=== PATIENT | female | born 1995 | race Caucasian/White ===

== ENCOUNTER 2017-01-19 14:44 | Emergency (ER) | payer OTHER ==
--- NOTE | 2017-01-19 15:43 | ED ORDER SUMMARY ---
..... Patient: LAURA MCGHEE OrderSheet [facility] VisitID: [id number] [address] [place] [address] 21y, F Registration Date/Time: 01/19/2017 ORDER SHEET Weight: 72.1 kg (stated) Allergies: Latex, Penicillins GENERAL ORDERS: MEDICATION ORDERS: Xanax PO 0.5 mg (NOW) (15:35 01/19/2017 Shi A.R.N.P.) (15:40 Silvio Rivas.N.) IV FLUIDS: ORDER SHEET NOTES: [Electronically signed by Clarisse Murray.R.N.P. (18:45 01/19/2017)] [Electronically signed by David Rice R.N. (19:00 01/19/2017)] [Electronically locked/signed by David Rice R.N. (19:00 01/19/2017)]
--- NOTE | 2017-01-19 15:43 | ED CLINICAL REPORT ---
Clinical Report - Physicians/Mid Levels [facility] [address] [place] [address] 01/19/2017 14:48 Patient: LAURA MCGHEE Time Seen: 1455; initial patient contact, initial documentation, patient care assumed. Arrived- By private vehicle. Not in custody. Historian- patient and mother. HISTORY OF PRESENT ILLNESS Chief Complaint: DEPRESSED and SUICIDAL THOUGHTS. This started about 2 - 3 weeks ago. No situational problems or recent drug use or alcohol consumption. She has not exhibited a behavior change, was not found wandering and is compliant with medication. Has had suicidal thoughts but been eating or not been depressed. Has not been sleeping. She has had anxiety. No anger, unusual behavior, paranoia, delusions or self-injury inflicted. No hallucinations. The symptoms are described as moderate. No injury is present. pt stating she has random thoughts of si or hurting herself when being left alone, she never acts on them, and she gets upset with herself when she has the thoughts, pt gave examples: driving alone and thought of driving over middle line to hit another car or drive into something, doing dishes and had thoughts of which knife was the sharpest, won't shave anymore because one time in shower she had thoughts of what the razor would do. Similar symptoms previously: None. Recent medical care: The patient was seen recently by a health care provider. ( went to pcp this am, provider not comfortable rx-ing psych meds or sleeping meds, so sent pt to [facility] for psych eval, [facility] then sent pt here after eval, since mom would not sign safety contract, for another psych eval, f/u appt tomorrow with [facility]). REVIEW OF SYSTEMS No headache, dizziness, weakness, chest pain or vomiting. No diarrhea, numbness or difficulty breathing. All systems otherwise negative, except as recorded above. PAST HISTORY See nurses notes. ( PROBLEMS: Sprain. Sinusitis. Eustachian Tube Dysfunction. URI. Viral Disease. Influenza. Tetanus Status. Spontaneous (Miscarriage). Vaginal Bleeding. Abdominal Pain. Threatened . Care. Pharyngitis. Strep Throat. Bronchitis. Laryngitis. . Ingrown Toenail. UTI - Urinary Tract Infection. --14:53 David Rice R.N. Bipolar Disorder. --15:07 David Rice R.N. ADDITIONAL SURGERIES: Dental Surgery. Tonsillectomy. --14:53 David Rice R.N.). SOCIAL HISTORY Light tobacco smoker. Has social support. Has place to stay. FAMILY HISTORY Negative. ADDITIONAL NOTES The nursing notes have been reviewed with agreement regarding the chief complaint, HPI, ROS, PMH and patient medications and allergies. PHYSICAL EXAM Vital Signs: 01/19/2017 14:52 BP: 125/78. HR: 88. RR: 18. O2 saturation: 100%. Temp: 98.4 F. Have been reviewed as normal and appear to be correct. Appearance: Alert. No acute distress. Appearance is normal. Eyes: Pupils equal, round and reactive to light. Neck: Normal inspection. Neck supple. CVS: Normal heart rate and rhythm. Heart sounds normal. Respiratory: Breath sounds normal. Chest nontender. Abdomen: Soft and nontender. Back: No tenderness. Skin: Skin warm and dry. Normal skin color. Normal skin turgor. Extremities: Extremities exhibit normal ROM. No lower extremity edema. Psych / Neuro: Oriented X 3. Mood and affect normal. Speech normal. Cognition normal. Thought process and content normal. Insight and judgement normal. Cranial nerves normal (as tested). No cerebellar findings. No motor deficit. No sensory deficit. PROGRESS AND PROCEDURES Course of Care: had discussion with mom and pt at time of arrival about tx options, what we could offer here, pt does have place to go and stay, #7 people in house, pt will never be left alone, mom and rest of family already put up all the knives and other sharp stuff, and safety protected the house 1518. spoke to jose a Olson at [facility], to verify what they could offer pt, pt would be offered same thing that was already done, come and talk to pt and set her up with outside sources, since pt is now with [facility] and has appt tomorrow again with them, there is nothing else [facility] will do 1525. pt and mom aware of conversation with jose a at [facility], offered pt something for anxiety/sleep for here and rx, and verified again she has safe place to go, pt agreed with this plan. Patient and mother counseled in person regarding the patient's stable condition and diagnosis. Differential Diagnosis: Other possible considerations: si, homicidal, anxiety, insomnia, bipolar. Above considerations are based on history and physical exam. Differential diagnosis was discussed with patient and patient's mother. Disposition: Discharged home in good and improved condition (15:43). Condition: good and stable. CLINICAL IMPRESSION Anxiety reaction. Psychophysiologic insomnia. INSTRUCTIONS Warnings: GENERAL WARNINGS: Return or contact your physician immediately if your condition worsens or changes unexpectedly, if not improving as expected, or if other problems arise. Specifically return if problem worsens. Prescription Medications: Xanax 0.25 mg: Take 1 orally every 8 hours as needed for anxiety. Dispense fifteen (15). No refills. Substitution is permissible. Follow-up: Follow up with your doctor tomorrow as scheduled even if well. Summary of care provided to patient and family. Understanding of the discharge instructions verbalized by patient and family. (Electronically signed by Clarisse Murray A.R.N.P. 01/19/2017 18:45)
--- NOTE | 2017-01-19 15:43 | ED CLINICAL REPORT ---
Clinical Report - Physicians/Mid Levels [facility] [address] [place] [address] 01/19/2017 14:48 Patient: LAURA MCGHEE Time Seen: 1455; initial patient contact, initial documentation, patient care assumed. Arrived- By private vehicle. Not in custody. Historian- patient and mother. HISTORY OF PRESENT ILLNESS Chief Complaint: DEPRESSED and SUICIDAL THOUGHTS. This started about 2 - 3 weeks ago. No situational problems or recent drug use or alcohol consumption. She has not exhibited a behavior change, was not found wandering and is compliant with medication. Has had suicidal thoughts but been eating or not been depressed. Has not been sleeping. She has had anxiety. No anger, unusual behavior, paranoia, delusions or self-injury inflicted. No hallucinations. The symptoms are described as moderate. No injury is present. pt stating she has random thoughts of si or hurting herself when being left alone, she never acts on them, and she gets upset with herself when she has the thoughts, pt gave examples: driving alone and thought of driving over middle line to hit another car or drive into something, doing dishes and had thoughts of which knife was the sharpest, won't shave anymore because one time in shower she had thoughts of what the razor would do. Similar symptoms previously: None. Recent medical care: The patient was seen recently by a health care provider. ( went to pcp this am, provider not comfortable rx-ing psych meds or sleeping meds, so sent pt to [facility] for psych eval, [facility] then sent pt here after eval, since mom would not sign safety contract, for another psych eval, f/u appt tomorrow with [facility]). REVIEW OF SYSTEMS No headache, dizziness, weakness, chest pain or vomiting. No diarrhea, numbness or difficulty breathing. All systems otherwise negative, except as recorded above. PAST HISTORY See nurses notes. ( PROBLEMS: Sprain. Sinusitis. Eustachian Tube Dysfunction. URI. Viral Disease. Influenza. Tetanus Status. Spontaneous (Miscarriage). Vaginal Bleeding. Abdominal Pain. Threatened . Care. Pharyngitis. Strep Throat. Bronchitis. Laryngitis. . Ingrown Toenail. UTI - Urinary Tract Infection. --14:53 David Rice R.N. Bipolar Disorder. --15:07 David Rice R.N. ADDITIONAL SURGERIES: Dental Surgery. Tonsillectomy. --14:53 David Rice R.N.). SOCIAL HISTORY Light tobacco smoker. Has social support. Has place to stay. FAMILY HISTORY Negative. ADDITIONAL NOTES The nursing notes have been reviewed with agreement regarding the chief complaint, HPI, ROS, PMH and patient medications and allergies. PHYSICAL EXAM Vital Signs: 01/19/2017 14:52 BP: 125/78. HR: 88. RR: 18. O2 saturation: 100%. Temp: 98.4 F. Have been reviewed as normal and appear to be correct. Appearance: Alert. No acute distress. Appearance is normal. Eyes: Pupils equal, round and reactive to light. Neck: Normal inspection. Neck supple. CVS: Normal heart rate and rhythm. Heart sounds normal. Respiratory: Breath sounds normal. Chest nontender. Abdomen: Soft and nontender. Back: No tenderness. Skin: Skin warm and dry. Normal skin color. Normal skin turgor. Extremities: Extremities exhibit normal ROM. No lower extremity edema. Psych / Neuro: Oriented X 3. Mood and affect normal. Speech normal. Cognition normal. Thought process and content normal. Insight and judgement normal. Cranial nerves normal (as tested). No cerebellar findings. No motor deficit. No sensory deficit. PROGRESS AND PROCEDURES Course of Care: had discussion with mom and pt at time of arrival about tx options, what we could offer here, pt does have place to go and stay, #7 people in house, pt will never be left alone, mom and rest of family already put up all the knives and other sharp stuff, and safety protected the house 1518. spoke to jose a Olson at [place], to verify what they could offer pt, pt would be offered same thing that was already done, come and talk to pt and set her up with outside sources, since pt is now with [facility] and has appt tomorrow again with them, there is nothing else [facility] will do 1525. pt and mom aware of conversation with jose a at [place], offered pt something for anxiety/sleep for here and rx, and verified again she has safe place to go, pt agreed with this plan. Patient and mother counseled in person regarding the patient's stable condition and diagnosis. Differential Diagnosis: Other possible considerations: si, homicidal, anxiety, insomnia, bipolar. Above considerations are based on history and physical exam. Differential diagnosis was discussed with patient and patient's mother. Disposition: Discharged home in good and improved condition (15:43). Condition: good and stable. CLINICAL IMPRESSION Anxiety reaction. Psychophysiologic insomnia. INSTRUCTIONS Warnings: GENERAL WARNINGS: Return or contact your physician immediately if your condition worsens or changes unexpectedly, if not improving as expected, or if other problems arise. Specifically return if problem worsens. Prescription Medications: Xanax 0.25 mg: Take 1 orally every 8 hours as needed for anxiety. Dispense fifteen (15). No refills. Substitution is permissible. Follow-up: Follow up with your doctor tomorrow as scheduled even if well. Summary of care provided to patient and family. Understanding of the discharge instructions verbalized by patient and family. (Electronically signed by Clarisse Murray A.R.N.P. 01/19/2017 18:45)
--- NOTE | 2017-01-19 15:43 | ED ORDER SUMMARY ---
..... Patient: LAURA MCGHEE OrderSheet [facility] VisitID: [id number] [address] [place] [address] 21y, F Registration Date/Time: 01/19/2017 ORDER SHEET Weight: 72.1 kg (stated) Allergies: Latex, Penicillins GENERAL ORDERS: MEDICATION ORDERS: Xanax PO 0.5 mg (NOW) (15:35 01/19/2017 Shi A.R.N.P.) (15:40 Silvio Rivas.N.) IV FLUIDS: ORDER SHEET NOTES: [Electronically signed by Clarisse Murray.R.N.P. (18:45 01/19/2017)] [Electronically signed by David Rice R.N. (19:00 01/19/2017)] [Electronically locked/signed by David Rice R.N. (19:00 01/19/2017)]
--- NOTE | 2017-01-19 15:43 | ED NURSING NOTES ---
Clinical Report - Nurses [facility] [address] [place] [address] 01/19/2017 14:48 Patient: LAURA MCGHEE TRIAGE Triage time 14:52 Jan 19 2017. Acuity: LEVEL 3. Chief Complaint: DEPRESSION, SUICIDAL THOUGHTS and ANXIETY. SEBASTIEN COMA SCORE: Sebastien Coma Scale: 15- eyes open spontaneously (4); best verbal response- oriented x 4 (5); best motor response- obeys commands (6). --15:15 David Rice R.N. 14:52 01/19/17. BP: 125/78. HR: 88. RR: 18. O2 saturation: 100%. Temp: 98.4 F. Pain level now 0/10. --15:15 David Rice R.N. Weight: 72.1 kg stated. Height/Length: 69 inches Per Patient. BMI: 23.5. --15:11 David Rice R.N. Medications Hyoscyamine Sulfate Oral. --15:06 David Rice R.N. Allergies Latex. Definite Moderate(rash) Penicillins. Definite Moderate(itching, rash) --14:53 David Rice R.N. History Arrived by private vehicle. Historian: patient. Accompanied by family. ( Two weeks feeling unstable.). She has had anxiety and sleeping difficulties and describes feelings of depression. Has not been confused. Has not been feeling agitated. Denies having hallucinations. PAST MEDICAL HX: Anxiety. Psychiatric illness. No history of diabetes mellitus or hypertension. Immunizations: up-to-date. SOCIAL HX: Current every day light tobacco smoker (cigarette)- less than 1/2 a pack per day. History of drug use: marijuana. No alcohol use. SELF HARM ASSESSMENT: A self harm assessment was performed. The patient answered "yes" to the question "Have you recently felt down, depressed, or hopeless?", "Have you noticed less interest or pleasure in doing things?", "Do you have thoughts of harming or killing yourself?", "Have you ever tried to hurt yourself before today?" and "Do you have any dangerous items in your possession?" and "no" to the question "Are you here because you tried to hurt yourself?" and "Have you recently had thoughts about harming or killing others?". The EMS reported the patient's behavior included suicidal comments and as anxious and withdrawn. In the ED the patient has made suicidal comments. She has been placed under 1-on-1 and continuous supervision with family at bedside. She was placed in direct sight of the nurses station. The ED physician has been notified. FALL RISK ASSESSMENT: Fall risk assessment completed. No fall risk identified. NUTRITIONAL RISK ASSESSMENT: The nutritional risk assessment revealed no deficiencies. FUNCTIONAL ASSESSMENT: Functional assessment: no impairments noted. LEARNING NEEDS ASSESSMENT: The learning needs assessment revealed no barriers. ABUSE ASSESSMENT: Abuse assessment: (yes) The patient was asked "Do you feel safe in your home?". SKIN INTEGRITY ASSESSMENT: Skin integrity risk assessment completed. No skin integrity risk identified. SUICIDE RISK ASSESSMENT (SAD PERSONS score): SADPERSONS Score: 3. The patient is less than 19 or greater than 45 years old, reports history of depression and displays loss of rational thinking. --15:15 David Rice R.N. PROBLEMS: Sprain. Sinusitis. Eustachian Tube Dysfunction. URI. Viral Disease. Influenza. Tetanus Status. Spontaneous (Miscarriage). Vaginal Bleeding. Abdominal Pain. Threatened . Care. Pharyngitis. Strep Throat. Bronchitis. Laryngitis. . Ingrown Toenail. UTI - Urinary Tract Infection. --14:53 David Rice R.N. Bipolar Disorder. --15:07 David Rice R.N. ADDITIONAL SURGERIES: Dental Surgery. Tonsillectomy. --14:53 David Rice R.N. Interventions ID band on patient. --15:15 David Rice R.N. PHYSICAL ASSESSMENT Ambulatory to room. GENERAL / NEURO / PSYCH: Alert. Oriented X 4. Appears anxious. Speech within normal limits. Patient's mood/affect appears tearful. Poor eye contact. Affect appears normal. Patient appears calm and cooperative. The patient describes suicidal thoughts. Patient appears well-nourished and neat and clean. RESPIRATORY: Respirations not labored. Breath sounds within normal limits. CVS: Normal heart rate and rhythm. Capillary refill less than 2 seconds. GI / : Abdomen soft and nontender. Bowel sounds within normal limits. SKIN: Skin intact. Skin is warm and dry. Skin color is within normal limits. --15:35 David Rice R.N. NURSING PROGRESS NOTES Patient gowned. Reassurance given. Suicide precautions initiated. Call light placed in reach. Side rails up x 1. Bed placed in lowest position. Brakes of bed on. ( Mom at bedside). --15:35 David Rice R.N. 15:40 01/19/2017 Xanax (ALPRAZolam) PO Tablets 0.5 mg given. Allergies verified and confirmed 5 rights. --15:40 David Rice R.N. DISPOSITION / DISCHARGE Condition at departure: improved. No learning barriers present. Discharge instructions provided and reviewed with the patient. Reviewed warnings. Reviewed medication(s). Treatments reviewed. Reviewed referrals. Patient verbalized understanding. Written instructions provided in Upper Sorbian. The patient was discharged home and accompanied by parent. She left the Emergency Department ambulatory and via private vehicle. Parent driving. ( Patient agreed to be safe and mother has agreed until patient can have her revisit at [facility] she will keep her one to one.). --16:09 David Rice R.N. 14:52 01/19/17. BP: 125/78. HR: 88. RR: 18. O2 saturation: 100%. Temp: 98.4 F. Pain level now 0/10. --16:09 David Rice R.N. Departure time: 16:Jan 19 2017. --16:09 David Rice R.N. Locked/Released at 01/19/2017 19:00 by David Rice R.N.
--- NOTE | 2017-01-19 19:00 | ED MED RECONCILIATION SUMMARY ---
Patient: LAURA MCGHEE Medication Reconciliation Report [facility] VisitID: [id number] [address] [place] [address] 21y, F Registration Date/Time: 01/19/2017 Weight: 72.1 kg Height/Length: 69 in. BMI: 23.5 ALLERGIES: Latex, Penicillins The patient's Home Medications are listed below: THE FOLLOWING MEDICATIONS NEED TO BE RECONCILED: Hyoscyamine Sulfate Oral The source(s) of the original Home Medication information: Not obtained. The following Medications were given to the patient in the Emergency Department: Xanax [PO] PO 0.5 mg, administered: 01/19/2017 3:40:00 PM The following Medications were prescribed to the patient: Xanax 0.25 mg: Take 1 orally every 8 hours as needed for anxiety. Dispense fifteen (15). No refills. Substitution is permissible. -- Clarisse Murray A.R.N.P.
--- NOTE | 2017-01-19 19:00 | ED DISCHARGE INSTRUCTIONS ---
Patient: LAURA MCGHEE General Instructions [facility] VisitID: [id number] [place] [address] 21y, F Registration Date/Time: 01/19/2017 Anxiety reaction. Psychophysiologic insomnia. INSTRUCTIONS Warnings: GENERAL WARNINGS: Return or contact your physician immediately if your condition worsens or changes unexpectedly, if not improving as expected, or if other problems arise. Specifically return if problem worsens. Prescription Medications: Xanax 0.25 mg: Take 1 orally every 8 hours as needed for anxiety. Dispense fifteen (15). No refills. Substitution is permissible. Follow-up: Follow up with your doctor tomorrow as scheduled even if well. Summary of care provided to patient and family. Understanding of the discharge instructions verbalized by patient and family. ADDITIONAL INFORMATION Stress Reaction Anxiety is the feeling we all get when we think something bad might happen. It is a normal response to stress and usually causes only a mild reaction. When anxiety becomes more severe, emotions may interfere with daily life. In some cases, you may not even be aware of what it is youre anxious about! During an anxiety reaction, you may feel like you are helpless, nervous, depressed or irritable. Your body may show signs of anxiety in many ways. You may experience dry mouth, shakiness, dizziness, weakness, trouble breathing, chest pressure, headache, nausea, diarrhea, tiredness, inability to sleep or sexual problems. Home Care: 1) Try to locate the sources of stress in your life. They may not be obvious! These may include: -- Daily hassles of life which pile up (traffic jams, missed appointments, car troubles, etc.) -- Major life changes, both good (new baby, job promotion) and bad (loss of job, loss of loved one) -- Overload: feeling that you have too many responsibilities and can't take care of all of them at once -- Feeling helpless, feeling that your problems are beyond what youre able to solve 2) Notice how your body reacts to stress. Learn to listen to your body signals. This will help you take action before the stress becomes severe. 3) When you can, do something about the source of your stress. (Avoid hassles, limit the amount of change that happens in your life at one time and take a break when you feel overloaded). 4) Unfortunately, many stressful situations cannot be avoided. It is necessary to learn HOW TO MANAGE STRESS better. There are many proven methods that will reduce your anxiety. These include simple things like exercise, good nutrition and adequate rest. Also, there are certain techniques that are helpful: relaxation and breathing exercises, visualization, biofeedback and meditation. For more information about this, consult your doctor or go to a local bookstore and review the many books and tapes available on this subject. Follow Up If you feel that your anxiety is not responding to self-help measures, contact your doctor or make an appointment with a counselor. Get Prompt Medical Attention if any of the following occur: -- Your symptoms get worse -- Chest pain or trouble breathing -- Severe headache not relieved by rest and mild pain reliever -- Rapid or irregular heartbeat, fainting Insomnia Insomnia refers to a difficulty going to sleep or staying asleep, or both. Insomnia has many causes, including anxiety, stress, depression, chronic pain, sleeping cycles out of balance due to working night shifts or excess napping during the day, and a condition called sleep apnea. Insomnia can be a side effect from stimulant medicines such as decongestants, asthma inhalers and pills, diet pills, and illegal drugs such as speed, crank, crack, and PCP. Home Care: Review your medicines with your doctor or pharmacist to find out if they can cause insomnia. Caffeine, smoking and alcohol also affect sleep. Limit your daily use and do not use these before bedtime. Alcohol may make you sleepy at first, but as its effects wear off, you may awaken a few hours later and have trouble returning to sleep. Do not exercise, eat or drink large amounts of liquid within 2 hours of your bedtime. Improve your sleep habits. Have a fixed bed and wake-up time. Try to keep noise, light and heat in your bedroom at a comfortable level. Try using earplugs or eyeshades if needed. Avoid watching TV in bed. If you do not fall asleep within 30 minutes, try to relax by reading or listening to soft music. Limit daytime napping to one 30 minute period, early in the day. Get regular exercise. Find other ways to lessen your stress level. If a medicine was prescribed to help reset your sleep patterns, take it as directed. Sleeping pills are intended for short-term use, only. If taken for too long, the effect wears off while the risk of physical addiction and psychological dependence increases. Follow-Up with your doctor or as directed by our staff if you feel that your insomnia is not responding to the above measures. Get Prompt Medical Attention if any of the following occur: Extreme restlessness or irritability Confusion or hallucinations (seeing or hearing things that are not there) Anxiety, depression Several days without sleeping Alprazolam Oral tablet What is this medicine? ALPRAZOLAM (al PRAMelva shawna toussaint) is a benzodiazepine. It is used to treat anxiety and panic attacks. How should I use this medicine? Take this medicine by mouth with a glass of water. Follow the directions on the prescription label. Take your medicine at regular intervals. Do not take it more often than directed. If you have been taking this medicine regularly for some time, do not suddenly stop taking it. You must gradually reduce the dose or you may get severe side effects. Ask your doctor or health medicare compliance auditor for advice. Even after you stop taking this medicine it can still affect your body for several days. Talk to your r&d engineer regarding the use of this medicine in children. Special care may be needed. What side effects may I notice from receiving this medicine? Side effects that you should report to your doctor or health medicare compliance auditor as soon as possible: allergic reactions like skin rash, itching or hives, swelling of the face, lips, or tongue confusion, forgetfulness depression difficulty sleeping difficulty speaking feeling faint or lightheaded, falls mood changes, excitability or aggressive behavior muscle cramps trouble passing urine or change in the amount of urine unusually weak or tired Side effects that usually do not require medical attention (report to your doctor or health medicare compliance auditor if they continue or are bothersome): change in sex drive or performance changes in appetite What may interact with this medicine? Do not take this medicine with any of the following medications: certain medicines for HIV infection or AIDS ketoconazole itraconazole This medicine may also interact with the following medications: control pills certain macrolide antibiotics like clarithromycin, erythromycin, troleandomycin cimetidine cyclosporine ergotamine grapefruit juice herbal or dietary supplements like kava kava, melatonin, dehydroepiandrosterone, DHEA, Grecia's Wort or valerian imatinib, STI-571 isoniazid levodopa medicines for depression, anxiety, or psychotic disturbances prescription pain medicines rifampin, rifapentine, or rifabutin some medicines for blood pressure or heart problems some medicines for seizures like carbamazepine, oxcarbazepine, phenobarbital, phenytoin, primidone What if I miss a dose? If you miss a dose, take it as soon as you can. If it is almost time for your next dose, take only that dose. Do not take double or extra doses. Where should I keep my medicine? Keep out of the reach of children. This medicine can be abused. Keep your medicine in a safe place to protect it from theft. Do not share this medicine with anyone. Selling or giving away this medicine is dangerous and against the law. Store at room temperature between 20 and 25 degrees C (68 and 77 degrees F). Throw away any unused medicine after the expiration date. What should I tell my health care provider before I take this medicine? They need to know if you have any of these conditions: an alcohol or drug abuse problem bipolar disorder, depression, psychosis or other mental health conditions glaucoma kidney or liver disease lung or breathing disease myasthenia gravis Parkinson's disease porphyria seizures or a history of seizures suicidal thoughts an unusual or allergic reaction to alprazolam, other benzodiazepines, foods, dyes, or preservatives or trying to get breast-feeding What should I watch for while using this medicine? Visit your doctor or health medicare compliance auditor for regular checks on your progress. Your body can become dependent on this medicine. Ask your doctor or health medicare compliance auditor if you still need to take it. You may get drowsy or dizzy. Do not drive, use machinery, or do anything that needs mental alertness until you know how this medicine affects you. To reduce the risk of dizzy and fainting spells, do not stand or sit up quickly, especially if you are an older patient. Alcohol may increase dizziness and drowsiness. Avoid alcoholic drinks. Do not treat yourself for coughs, colds or allergies without asking your doctor or health medicare compliance auditor for advice. Some ingredients can increase possible side effects. You have been given the following additional information: Anxiety Reaction Insomnia Alprazolam Oral tablet (Electronically signed by Clarisse Murray A.R.N.P. 01/19/2017 18:45)
--- NOTE | 2017-01-19 19:00 | ED MAR SUMMARY ---
..... Medication Administration Record [facility] [address] [place] [address] Patient: LAURA MCGHEE Visit ID: [id number] 21y, F Weight: 72.1 kg Height/Length: 69 in BMI: 23.5 ALLERGIES: Latex, Penicillins Given 15:40 01/19/2017 David Rice R.N. Medication Administered: XANAX [PO] (ALPRAZOLAM), Dose: 0.5 mg Tablets PO. Medication Ordered: Xanax PO 0.5 mg (NOW).
--- NOTE | 2017-01-19 19:00 | ED MAR SUMMARY ---
..... Medication Administration Record [facility] [address] [place] [address] Patient: LAURA MCGHEE Visit ID: [id number] 21y, F Weight: 72.1 kg Height/Length: 69 in BMI: 23.5 ALLERGIES: Latex, Penicillins Given 15:40 01/19/2017 David Rice R.N. Medication Administered: XANAX [PO] (ALPRAZOLAM), Dose: 0.5 mg Tablets PO. Medication Ordered: Xanax PO 0.5 mg (NOW).
--- NOTE | 2017-01-19 19:00 | ED MED RECONCILIATION SUMMARY ---
Patient: LAURA MCGHEE Medication Reconciliation Report [facility] VisitID: [id number] [address] [place] [address] 21y, F Registration Date/Time: 01/19/2017 Weight: 72.1 kg Height/Length: 69 in. BMI: 23.5 ALLERGIES: Latex, Penicillins The patient's Home Medications are listed below: THE FOLLOWING MEDICATIONS NEED TO BE RECONCILED: Hyoscyamine Sulfate Oral The source(s) of the original Home Medication information: Not obtained. The following Medications were given to the patient in the Emergency Department: Xanax [PO] PO 0.5 mg, administered: 01/19/2017 3:40:00 PM The following Medications were prescribed to the patient: Xanax 0.25 mg: Take 1 orally every 8 hours as needed for anxiety. Dispense fifteen (15). No refills. Substitution is permissible. -- Clarisse Murray A.R.N.P.
--- NOTE | 2017-01-19 19:00 | ED DISCHARGE INSTRUCTIONS ---
Patient: LAURA MCGHEE General Instructions [facility] VisitID: [id number] [place] [address] 21y, F Registration Date/Time: 01/19/2017 Anxiety reaction. Psychophysiologic insomnia. INSTRUCTIONS Warnings: GENERAL WARNINGS: Return or contact your physician immediately if your condition worsens or changes unexpectedly, if not improving as expected, or if other problems arise. Specifically return if problem worsens. Prescription Medications: Xanax 0.25 mg: Take 1 orally every 8 hours as needed for anxiety. Dispense fifteen (15). No refills. Substitution is permissible. Follow-up: Follow up with your doctor tomorrow as scheduled even if well. Summary of care provided to patient and family. Understanding of the discharge instructions verbalized by patient and family. ADDITIONAL INFORMATION Stress Reaction Anxiety is the feeling we all get when we think something bad might happen. It is a normal response to stress and usually causes only a mild reaction. When anxiety becomes more severe, emotions may interfere with daily life. In some cases, you may not even be aware of what it is youre anxious about! During an anxiety reaction, you may feel like you are helpless, nervous, depressed or irritable. Your body may show signs of anxiety in many ways. You may experience dry mouth, shakiness, dizziness, weakness, trouble breathing, chest pressure, headache, nausea, diarrhea, tiredness, inability to sleep or sexual problems. Home Care: 1) Try to locate the sources of stress in your life. They may not be obvious! These may include: -- Daily hassles of life which pile up (traffic jams, missed appointments, car troubles, etc.) -- Major life changes, both good (new baby, job promotion) and bad (loss of job, loss of loved one) -- Overload: feeling that you have too many responsibilities and can't take care of all of them at once -- Feeling helpless, feeling that your problems are beyond what youre able to solve 2) Notice how your body reacts to stress. Learn to listen to your body signals. This will help you take action before the stress becomes severe. 3) When you can, do something about the source of your stress. (Avoid hassles, limit the amount of change that happens in your life at one time and take a break when you feel overloaded). 4) Unfortunately, many stressful situations cannot be avoided. It is necessary to learn HOW TO MANAGE STRESS better. There are many proven methods that will reduce your anxiety. These include simple things like exercise, good nutrition and adequate rest. Also, there are certain techniques that are helpful: relaxation and breathing exercises, visualization, biofeedback and meditation. For more information about this, consult your doctor or go to a local bookstore and review the many books and tapes available on this subject. Follow Up If you feel that your anxiety is not responding to self-help measures, contact your doctor or make an appointment with a counselor. Get Prompt Medical Attention if any of the following occur: -- Your symptoms get worse -- Chest pain or trouble breathing -- Severe headache not relieved by rest and mild pain reliever -- Rapid or irregular heartbeat, fainting Insomnia Insomnia refers to a difficulty going to sleep or staying asleep, or both. Insomnia has many causes, including anxiety, stress, depression, chronic pain, sleeping cycles out of balance due to working night shifts or excess napping during the day, and a condition called sleep apnea. Insomnia can be a side effect from stimulant medicines such as decongestants, asthma inhalers and pills, diet pills, and illegal drugs such as speed, crank, crack, and PCP. Home Care: Review your medicines with your doctor or pharmacist to find out if they can cause insomnia. Caffeine, smoking and alcohol also affect sleep. Limit your daily use and do not use these before bedtime. Alcohol may make you sleepy at first, but as its effects wear off, you may awaken a few hours later and have trouble returning to sleep. Do not exercise, eat or drink large amounts of liquid within 2 hours of your bedtime. Improve your sleep habits. Have a fixed bed and wake-up time. Try to keep noise, light and heat in your bedroom at a comfortable level. Try using earplugs or eyeshades if needed. Avoid watching TV in bed. If you do not fall asleep within 30 minutes, try to relax by reading or listening to soft music. Limit daytime napping to one 30 minute period, early in the day. Get regular exercise. Find other ways to lessen your stress level. If a medicine was prescribed to help reset your sleep patterns, take it as directed. Sleeping pills are intended for short-term use, only. If taken for too long, the effect wears off while the risk of physical addiction and psychological dependence increases. Follow-Up with your doctor or as directed by our staff if you feel that your insomnia is not responding to the above measures. Get Prompt Medical Attention if any of the following occur: Extreme restlessness or irritability Confusion or hallucinations (seeing or hearing things that are not there) Anxiety, depression Several days without sleeping Alprazolam Oral tablet What is this medicine? ALPRAZOLAM (al PRAMelva shawna toussaint) is a benzodiazepine. It is used to treat anxiety and panic attacks. How should I use this medicine? Take this medicine by mouth with a glass of water. Follow the directions on the prescription label. Take your medicine at regular intervals. Do not take it more often than directed. If you have been taking this medicine regularly for some time, do not suddenly stop taking it. You must gradually reduce the dose or you may get severe side effects. Ask your doctor or health manager critical care unit for advice. Even after you stop taking this medicine it can still affect your body for several days. Talk to your pediatrics teacher regarding the use of this medicine in children. Special care may be needed. What side effects may I notice from receiving this medicine? Side effects that you should report to your doctor or health manager critical care unit as soon as possible: allergic reactions like skin rash, itching or hives, swelling of the face, lips, or tongue confusion, forgetfulness depression difficulty sleeping difficulty speaking feeling faint or lightheaded, falls mood changes, excitability or aggressive behavior muscle cramps trouble passing urine or change in the amount of urine unusually weak or tired Side effects that usually do not require medical attention (report to your doctor or health manager critical care unit if they continue or are bothersome): change in sex drive or performance changes in appetite What may interact with this medicine? Do not take this medicine with any of the following medications: certain medicines for HIV infection or AIDS ketoconazole itraconazole This medicine may also interact with the following medications: control pills certain macrolide antibiotics like clarithromycin, erythromycin, troleandomycin cimetidine cyclosporine ergotamine grapefruit juice herbal or dietary supplements like kava kava, melatonin, dehydroepiandrosterone, DHEA, Grecia's Wort or valerian imatinib, STI-571 isoniazid levodopa medicines for depression, anxiety, or psychotic disturbances prescription pain medicines rifampin, rifapentine, or rifabutin some medicines for blood pressure or heart problems some medicines for seizures like carbamazepine, oxcarbazepine, phenobarbital, phenytoin, primidone What if I miss a dose? If you miss a dose, take it as soon as you can. If it is almost time for your next dose, take only that dose. Do not take double or extra doses. Where should I keep my medicine? Keep out of the reach of children. This medicine can be abused. Keep your medicine in a safe place to protect it from theft. Do not share this medicine with anyone. Selling or giving away this medicine is dangerous and against the law. Store at room temperature between 20 and 25 degrees C (68 and 77 degrees F). Throw away any unused medicine after the expiration date. What should I tell my health care provider before I take this medicine? They need to know if you have any of these conditions: an alcohol or drug abuse problem bipolar disorder, depression, psychosis or other mental health conditions glaucoma kidney or liver disease lung or breathing disease myasthenia gravis Parkinson's disease porphyria seizures or a history of seizures suicidal thoughts an unusual or allergic reaction to alprazolam, other benzodiazepines, foods, dyes, or preservatives or trying to get breast-feeding What should I watch for while using this medicine? Visit your doctor or health manager critical care unit for regular checks on your progress. Your body can become dependent on this medicine. Ask your doctor or health manager critical care unit if you still need to take it. You may get drowsy or dizzy. Do not drive, use machinery, or do anything that needs mental alertness until you know how this medicine affects you. To reduce the risk of dizzy and fainting spells, do not stand or sit up quickly, especially if you are an older patient. Alcohol may increase dizziness and drowsiness. Avoid alcoholic drinks. Do not treat yourself for coughs, colds or allergies without asking your doctor or health manager critical care unit for advice. Some ingredients can increase possible side effects. You have been given the following additional information: Anxiety Reaction Insomnia Alprazolam Oral tablet (Electronically signed by Clarisse Murray A.R.N.P. 01/19/2017 18:45)
== END 2017-01-19 16:05 | disposition home or self-care (01) ==
LOC: ED SRH 14:44
DX: F41.1 Generalized anxiety disorder (principal); F51.04 Psychophysiologic insomnia; F31.9 Bipolar disorder, unspecified; Z79.899 Other long term (current) drug therapy; F17.210 Nicotine dependence, cigarettes, uncomplicated; Z91.040 Latex allergy status; Z88.0 Allergy status to penicillin